=== PATIENT | male | born 1950 | race American Indian/Alaskan Native ===

== ENCOUNTER 2017-02-01 14:28 | Inpatient (IN) | payer MEDICARE ==
[2017-02-01] MEDS ORDERED: NACL 0.9% 1000 ML 1,000 ML IV ONE (14:34)
[2017-02-01 14:41] LABS: Hematocrit 43.5 % (35.5-45.6); Hemoglobin 14.9 gm/dl (11.8-15.2); Mean Corpuscular HGB Conc 34 % (32-34); Mean Corpuscular Hemoglobin 32 pg (28-32); Mean Corpuscular Volume 94 fl (84-94); Platelet Count 200 K/mm3 (140-440); Red Blood Count 4.62 M/mm3 (3.65-5.03); Red Cell Distribution Width 12.8 % (13.2-15.2); White Blood Count 10.5 K/mm3 (4.5-11.0)
[2017-02-01 14:57] LABS: INR 0.97 (0.87-1.13)
[2017-02-01 15:08] LABS: Alanine Aminotransferase 39 units/L (7-56); Albumin 4.3 g/dL (3.9-5); Albumin/Globulin Ratio 1.5 %; Alkaline Phosphatase 95 units/L (35-129); Anion Gap 18 mmol/L; BUN/Creatinine Ratio 10.76; Blood Urea Nitrogen 14 mg/dL (9-20); Calcium 9.5 mg/dL (8.4-10.2); Carbon Dioxide 28 mmol/L (22-30); Chloride 98.8 mmol/L (98-107); Glucose 93 mg/dL (75-100); Potassium 4.5 mmol/L (3.6-5.0); Sodium 140 mmol/L (137-145); Total Protein 7.1 g/dL (6.3-8.2)
--- NOTE | 2017-02-01 15:27 | XRay Report ---
PORTABLE CHEST: Syncope. An AP portable view of the chest demonstrates a normal cardiac contour considering the limits of this technique. The lungs are clear with no evidence of infiltrate, fluid or failure. IMPRESSION: Normal portable chest.
--- NOTE | 2017-02-01 15:33 | Emergency Department Report ---
ED Chest Pain HPI - General Chief Complaint: Syncope Stated Complaint: POSS CVA Time Seen by Provider: 02/01/17 15:09 Source: EMS Mode of arrival: Stretcher Limitations: No Limitations - History of Present Illness Initial Comments: This is a 66-year-old male presents to the emergency department by EMS from [facility] after he began having some chest pain and then had an episode where he passed out in the car in the parking lot. The patient woke up from passing out he was slightly altered and there was concern of possible stroke or seizure but those symptoms have resolved upon presentation. He was not given and did not take anything for his symptoms prior to presentation. He has a past medical history of Crohn's disease and hypertension. The patient says that he has left ankle pain currently and feels some generalized weakness, along with this chest pain. His primary care physician is Dr. Parsons. Severity scale (0 -10): 8 - Related Data Home Medications Medication Instructions Recorded Confirmed Last Taken Lisinopril [Zestril] 20 mg PO BID 02/01/17 02/01/17 02/01/17 Multivits,Ca,Min/Iron/FA/Lycop 1 each PO DAILY 02/01/17 02/01/17 02/01/17 [Centrum Men's Tablet] [place]-3 Fatty Acids/Fish Oil [Fish 1 each PO DAILY 02/01/17 02/01/17 02/01/17 Oil] Omeprazole 40 mg PO DAILY 02/01/17 02/01/17 02/01/17 Ondansetron [Zofran TAB] 4 mg PO Q8HR PRN 02/01/17 02/01/17 Unknown traMADol [Ultram] 50 mg PO Q4HR PRN 02/01/17 02/01/17 02/01/17 Allergies Allergy/AdvReac Type Severity Reaction Status Date / Time No Known Allergies Allergy Unverified 02/01/17 14:36 Heart Score - HEART Score History: Moderately suspicious EKG: Non-specific Age: > 65 Risk factors: 1-2 risk factors Troponin: < normal limit HEART Score: 5 - Critical Actions Critical Actions: 4-6 pts:12-16.6% risk of adverse cardiac event. Should be admitted ED Review of Systems ROS: Stated complaint: POSS CVA Other details as noted in HPI Comment: All other systems reviewed and negative Constitutional: denies: chills, fever Eyes: denies: eye pain, eye discharge, vision change ENT: denies: ear pain, throat pain Respiratory: denies: cough, shortness of breath, wheezing Cardiovascular: chest pain, syncope. denies: edema Gastrointestinal: denies: abdominal pain, nausea, diarrhea Genitourinary: denies: urgency, dysuria Musculoskeletal: denies: back pain, joint swelling, arthralgia Skin: denies: rash, lesions Neurological: headache, weakness ED Past Medical Hx - Medications Home Medications: Home Medications Medication Instructions Recorded Confirmed Last Taken Type Lisinopril [Zestril] 20 mg PO BID 02/01/17 02/01/17 02/01/17 History Multivits,Ca,Min/Iron/FA/Lycop 1 each PO DAILY 02/01/17 02/01/17 02/01/17 History [Centrum Men's Tablet] [place]-3 Fatty Acids/Fish Oil [Fish 1 each PO DAILY 02/01/17 02/01/17 02/01/17 History Oil] Omeprazole 40 mg PO DAILY 02/01/17 02/01/17 02/01/17 History Ondansetron [Zofran TAB] 4 mg PO Q8HR PRN 02/01/17 02/01/17 Unknown History traMADol [Ultram] 50 mg PO Q4HR PRN 02/01/17 02/01/17 02/01/17 History ED Physical Exam - General Limitations: No Limitations - Other Other exam information: GENERAL: The patient is well-developed well-nourished. HENT: Normocephalic. Atraumatic. Patient has moist mucous membranes. No nystagmus. EYES: Extraocular motions are intact. Pupils equal reactive to light bilaterally. NECK: Supple. Trachea is midline. CHEST/LUNGS: Clear to auscultation. There is no respiratory distress noted. Chest pain is not reproducible to palpation chest wall. HEART/CARDIOVASCULAR: Regular. There is no tachycardia. There is no gallop rub or murmur. ABDOMEN: Abdomen is soft, nontender. Patient has normal bowel sounds. There is no abdominal distention. SKIN: Skin is warm and dry. NEURO: The patient is awake, alert, and oriented. The patient is cooperative. The patient has no focal neurologic deficits. The patient has normal speech. There is a slight bilateral upper extremity drift but then the patient is able to keep his arms above the gurney and readjust back to supination. MUSCULOSKELETAL: There is no tenderness or deformity. There is no limitation range of motion. There is no evidence of acute injury. Muscle strength 5 out of 5 upper and lower extremities bilaterally. Cap refill less than 2 seconds. ED Course Vital Signs 02/01/17 02/01/17 02/01/17 14:42 16:24 18:42 Temperature 98.0 F 97.8 F Pulse Rate 60 54 L 58 L Respiratory 20 18 18 Rate Blood Pressure 155/84 142/91 170/98 [Left] O2 Sat by Pulse 100 96 100 Oximetry AALIYAH score - Aaliyah Score Age > 65: (0) No Aspirin use within the Past 7 Days: (0) No 3 or more CAD Risk Factors: (0) No 2 or more Angina events in past 24 hrs: (1) Yes Known CAD with more than 50% Stenosis: (0) No Elevated Cardiac Markers: (0) No ST Deviation Greater than 0.5mm: (0) No AALIYAH Score: 1 ED Medical Decision Making - Lab Data Result diagrams: 02/01/17 14:25 02/01/17 14:25 - EKG Data -: EKG Interpreted by Me EKG shows normal: sinus rhythm, axis, intervals (right bundle branch block), QRS complexes, ST-T waves Rate: bradycardia - EKG Data When compared to previous EKG there are: previous EKG unavailable Interpretation: other (sinus bradycardia, right bundle branch block) - Radiology Data Radiology results: report reviewed, image reviewed interpreted by me: Chest x-ray does not show any acute process. There are no pleural effusions, obvious pneumonia and there is no pneumothorax. Abdominal x-ray shows nonspecific nonobstructive bowel gas CT of the head does not show any acute intracranial process including no ischemia, shift, mass, bleeding or skull fracture. - Medical Decision Making 66-year-old male presents to the emergency department after passing out in his car, witnessed by his , [facility] and developing some chest pain. He does have some abdominal discomfort as well that is not reproducible to palpation but he does have a history of Crohn's as well. Patient was seen by my colleague upon presentation and a possible code stroke was canceled as the patient only neurological complaint and/or deficit at that time was a generalized weakness. CT of the head was done not show any acute process. Vital signs stable throughout his ED course. However secondary to the chest pain with syncope, the patient will be admitted to the hospital for further evaluation and treatment and has been accepted for admission by the hospitalist, Dr. Maher. - Differential Diagnosis CVA, TIA, AR, PE, Crohn's, orthostatic hypotension Critical Care Time: No Critical care attestation.: If time is entered above; I have spent that time in minutes in the direct care of this critically ill patient, excluding procedure time. ED Disposition Clinical Impression: Syncope Qualifiers: Syncope type: unspecified Qualified Code(s): R55 - Syncope and collapse Hypertension Qualifiers: Hypertension type: essential hypertension Qualified Code(s): I10 - Essential ( primary) hypertension Chest pain Qualifiers: Chest pain type: unspecified Qualified Code(s): R07.9 - Chest pain, unspecified Abdominal pain Qualifiers: Abdominal location: generalized Qualified Code(s): R10.84 - Generalized abdominal pain Disposition: OP ADMIT IP TO THIS HOSP Is pt being admited?: Yes Does the pt Need Aspirin: Yes Condition: Stable Instructions: Syncope (ED), Hypertension (ED), Chest Pain (ED) Time of Disposition: 19:02
[2017-02-01] MEDS ORDERED: MORPHINE IV ONE (15:56)
[2017-02-01 16:18] LABS: Basophils % (Manual) 0 % (0.0-1.8); Blastocytes % (Manual) 0 %; Eosinophils % (Manual) 0 % (0.0-4.3)
[2017-02-01 16:19] LABS: Diff Status Complete; RBC Morphology Normal
[2017-02-01] MEDS ORDERED: DILAUDID IV ONE ×2 (17:20→20:35)
--- NOTE | 2017-02-01 17:21 | Cat Scan Report ---
FINAL REPORT EXAM: CT HEAD/BRAIN WO CON HISTORY: Syncope TECHNIQUE: CT head without contrast PRIORS: None. FINDINGS: No acute intra-axial or extra-axial hemorrhage is identified. There is no evidence of midline shift or mass effect. The ventricles and sulci are within normal limits. Abraham-white matter differentiation is intact. No acute parenchymal abnormalities seen. Bony calvarium is grossly intact. Visualized portions of the mastoids and paranasal sinuses are unremarkable. IMPRESSION: Negative CT head
[2017-02-01] MEDS ORDERED: BABY ASPIRIN PO ONE (19:02)
[2017-02-01] MEDS ORDERED: HEPARIN ONE (19:52)
[2017-02-01] MEDS ORDERED: DILAUDID ONE (20:41)
[2017-02-01] MEDS ORDERED: PERCOCET 5/325 PO PRN (20:44)
[2017-02-01] MEDS ORDERED: MILK OF MAGNESIA PO PRN (20:44)
[2017-02-01] MEDS ORDERED: ZOFRAN IV PRN (20:44)
[2017-02-01] MEDS ORDERED: AMBIEN PO PRN (20:44)
[2017-02-01] MEDS ORDERED: TYLENOL PO PRN (20:44)
[2017-02-01] MEDS ORDERED: DULCOLAX PR PRN (20:44)
--- NOTE | 2017-02-01 20:44 | History and Physical Report ---
History of Present Illness Date of examination: 02/01/17 Date of admission: 02/01/2017 Chief complaint: Chief complaint: Left-sided chest pain lasting for 5 minutes while at [facility] one hour ago. History of present illness: History of Present Illness This is a 66-year-old male presents to the emergency department by EMS from [facility] after he began having some chest pain and then had an episode where he passed out in the car in the parking lot. Chest pain was only one episode. Resolved. Initial chest pain was 8/10 lasted for a few minutes. Quality is sharp. No exacerbating or relieving factors. The patient woke up from passing out and was slightly altered and there was concern of possible stroke or seizure but those symptoms have resolved upon presentation. He did not take anything for his symptoms prior to presentation. He has a past medical history of Crohn's disease and hypertension. The patient says that he has left ankle pain currently and feels some generalized weakness, along with this chest pain. His primary care physician is Dr. Parsons. Severity scale (0 -10): 8 Review of System: Constitutional: no fever, no chills, no weight loss Ears, eyes, nose, mouth and throat: no nasal congestion, no nasal discharge, no sinus pressure, no vision change, no red eye. Neck: No neck pain or rigidity. Cardiovascular: No chest pain, no orthopnea, no palpitations, no leg swelling Respiratory: No shortness of breath, no cough, no congestion, no wheezing Gastrointestinal: no abdominal pain, no nausea, no vomiting Genitourinary : no dysuria, no hematuria Musculoskeletal: no joint swelling or muscle ache Integumentary: no rash, no pruritis Neurological: no parathesias, no numbness, no tingling Endocrine: no cold or heat intolerance, no polyuria or polydipsia Hematologic/Lymphatic: no easy bruising, no easy bleeding, no gland swelling Allergic/Immunologic: no urticaria, no angioedema. Past History Past Medical History: hypertension, other (Crohn's disease) Past Surgical History: No surgical history Social history: lives with family, full code. denies: smoking, alcohol abuse Family history: hypertension Medications and Allergies Allergies Allergy/AdvReac Type Severity Reaction Status Date / Time No Known Allergies Allergy Unverified 02/01/17 14:36 Home Medications Medication Instructions Recorded Confirmed Last Taken Type Lisinopril [Zestril] 20 mg PO BID 02/01/17 02/01/17 02/01/17 History Multivits,Ca,Min/Iron/FA/Lycop 1 each PO DAILY 02/01/17 02/01/17 02/01/17 History [Centrum Men's Tablet] [place]-3 Fatty Acids/Fish Oil [Fish 1 each PO DAILY 02/01/17 02/01/17 02/01/17 History Oil] Omeprazole 40 mg PO DAILY 02/01/17 02/01/17 02/01/17 History Ondansetron [Zofran TAB] 4 mg PO Q8HR PRN 02/01/17 02/01/17 Unknown History traMADol [Ultram] 50 mg PO Q4HR PRN 02/01/17 02/01/17 02/01/17 History Active Meds: Active Medications Heparin Sodium (Porcine) (Heparin) 5,000 unit SUB-Q Q8HR JENNIFER Review of Systems All systems: negative Exam - Physical Exam Narrative exam: Lying comfortably - Constitutional Vitals: Temp Pulse Resp BP Pulse Ox 98 F 61 16 158/90 100 02/01/17 19:00 02/01/17 19:00 02/01/17 19:00 02/01/17 19:00 02/01/17 19:00 General appearance: Present: no acute distress, well-nourished - EENT Eyes: Present: PERRL ENT: hearing intact, clear oral mucosa - Neck Neck: Present: supple, normal ROM - Respiratory Respiratory effort: normal Respiratory: bilateral: CTA - Cardiovascular Heart Sounds: Present: S1 & S2. Absent: rub, click - Extremities Extremities: pulses symmetrical, No edema Peripheral Pulses: within normal limits - Abdominal General gastrointestinal: Present: soft, non-tender, non-distended, normal bowel sounds Male genitourinary: Present: normal - Integumentary Integumentary: Present: clear, warm, dry - Musculoskeletal Musculoskeletal: gait normal, strength equal bilaterally - Psychiatric Psychiatric: appropriate mood/affect, intact judgment & insight - Neurologic Neurologic: CNII-XII intact, moves all extremities Results - Labs CBC & Chem 7: 02/01/17 14:25 02/02/17 03:10 Labs: Laboratory Last Values WBC 10.5 K/mm3 (4.5-11.0) 02/01/17 14:25 RBC 4.62 M/mm3 (3.65-5.03) 02/01/17 14:25 Hgb 14.9 gm/dl (11.8-15.2) 02/01/17 14:25 Hct 43.5 % (35.5-45.6) 02/01/17 14:25 MCV 94 fl (84-94) 02/01/17 14:25 MCH 32 pg (28-32) 02/01/17 14:25 MCHC 34 % (32-34) 02/01/17 14:25 RDW 12.8 % (13.2-15.2) L 02/01/17 14:25 Plt Count 200 K/mm3 (140-440) 02/01/17 14:25 Lymph % (Auto) Retail Merchandiser Technician 02/01/17 14:25 Lymph # Retail Merchandiser Technician 02/01/17 14:25 Add Manual Diff Complete 02/01/17 14:25 Total Counted 100 02/01/17 14:25 Seg Neuts % (Manual) 35.0 % (40.0-70.0) L 02/01/17 14:25 Band Neutrophils % 2.0 % 02/01/17 14:25 Lymphocytes % (Manual) 53.0 % (13.4-35.0) H 02/01/17 14:25 Reactive Lymphs % (Man) 2.0 % 02/01/17 14:25 Monocytes % (Manual) 8.0 % (0.0-7.3) H 02/01/17 14:25 Eosinophils % (Manual) 0 % (0.0-4.3) 02/01/17 14:25 Basophils % (Manual) 0 % (0.0-1.8) 02/01/17 14:25 Metamyelocytes % 0 % 02/01/17 14:25 Myelocytes % 0 % 02/01/17 14:25 Promyelocytes % 0 % 02/01/17 14:25 Blast Cells % 0 % 02/01/17 14:25 Nucleated RBC % Not Reportable 02/01/17 14:25 Seg Neutrophils # Man 3.7 K/mm3 (1.8-7.7) 02/01/17 14:25 Band Neutrophils # 0.2 K/mm3 02/01/17 14:25 Lymphocytes # (Manual) 5.6 K/mm3 (1.2-5.4) H 02/01/17 14:25 Abs React Lymphs (Man) 0.2 K/mm3 02/01/17 14:25 Monocytes # (Manual) 0.8 K/mm3 (0.0-0.8) 02/01/17 14:25 Eosinophils # (Manual) 0.0 K/mm3 (0.0-0.4) 02/01/17 14:25 Basophils # (Manual) 0.0 K/mm3 (0.0-0.1) 02/01/17 14:25 Metamyelocytes # 0.0 K/mm3 02/01/17 14:25 Myelocytes # 0.0 K/mm3 02/01/17 14:25 Promyelocytes # 0.0 K/mm3 02/01/17 14:25 Blast Cells # 0.0 K/mm3 02/01/17 14:25 WBC Morphology Not Reportable 02/01/17 14:25 Hypersegmented Neuts Not Reportable 02/01/17 14:25 Hyposegmented Neuts Not Reportable 02/01/17 14:25 Hypogranular Neuts Not Reportable 02/01/17 14:25 Smudge Cells Not Reportable 02/01/17 14:25 Toxic Granulation Not Reportable 02/01/17 14:25 Toxic Vacuolation Not Reportable 02/01/17 14:25 Dohle Bodies Not Reportable 02/01/17 14:25 Pelger-Huet Anomaly Not Reportable 02/01/17 14:25 Juan Daniel Rods Not Reportable 02/01/17 14:25 Platelet Estimate Not Reportable 02/01/17 14:25 Clumped Platelets Not Reportable 02/01/17 14:25 Plt Clumps, EDTA Not Reportable 02/01/17 14:25 Large Platelets Not Reportable 02/01/17 14:25 Giant Platelets Not Reportable 02/01/17 14:25 Platelet Satelliting Not Reportable 02/01/17 14:25 Plt Morphology Comment Not Reportable 02/01/17 14:25 RBC Morphology Normal 02/01/17 14:25 Dimorphic RBCs Not Reportable 02/01/17 14:25 Polychromasia Not Reportable 02/01/17 14:25 Hypochromasia Not Reportable 02/01/17 14:25 Poikilocytosis Not Reportable 02/01/17 14:25 Anisocytosis Not Reportable 02/01/17 14:25 Microcytosis Not Reportable 02/01/17 14:25 Macrocytosis Not Reportable 02/01/17 14:25 Spherocytes Not Reportable 02/01/17 14:25 Pappenheimer Bodies Not Reportable 02/01/17 14:25 Sickle Cells Not Reportable 02/01/17 14:25 Target Cells Not Reportable 02/01/17 14:25 Tear Drop Cells Not Reportable 02/01/17 14:25 Ovalocytes Not Reportable 02/01/17 14:25 Helmet Cells Not Reportable 02/01/17 14:25 Guillen-Scofield Bodies Not Reportable 02/01/17 14:25 Stanley Rings Not Reportable 02/01/17 14:25 Usman Cells Not Reportable 02/01/17 14:25 Bite Cells Not Reportable 02/01/17 14:25 Crenated Cell Not Reportable 02/01/17 14:25 Elliptocytes Not Reportable 02/01/17 14:25 Acanthocytes (Spur) Not Reportable 02/01/17 14:25 Rouleaux Not Reportable 02/01/17 14:25 Hemoglobin C Crystals Not Reportable 02/01/17 14:25 Schistocytes Not Reportable 02/01/17 14:25 Malaria parasites Not Reportable 02/01/17 14:25 Wili Bodies Not Reportable 02/01/17 14:25 Hem Pathologist Commnt No 02/01/17 14:25 PT 12.8 Sec. (12.2-14.9) 02/01/17 14:25 INR 0.97 (0.87-1.13) 02/01/17 14:25 D-Dimer 174.92 ng/mlDDU (0-234) 02/01/17 15:16 Sodium 140 mmol/L (137-145) 02/01/17 14:25 Potassium 4.5 mmol/L (3.6-5.0) 02/01/17 14:25 Chloride 98.8 mmol/L (98-107) 02/01/17 14:25 Carbon Dioxide 28 mmol/L (22-30) 02/01/17 14:25 Anion Gap 18 mmol/L 02/01/17 14:25 BUN 14 mg/dL (9-20) 02/01/17 14:25 Creatinine 1.3 mg/dL (0.8-1.5) 02/01/17 14:25 Estimated GFR 55 ml/min 02/01/17 14:25 BUN/Creatinine Ratio 10.76 % 02/01/17 14:25 Glucose 93 mg/dL (75-100) 02/01/17 14:25 Calcium 9.5 mg/dL (8.4-10.2) 02/01/17 14:25 Magnesium 1.60 mg/dL (1.7-2.3) L 02/01/17 14:25 Total Bilirubin 0.90 mg/dL (0.1-1.2) 02/01/17 14:25 AST 36 units/L (5-40) 02/01/17 14:25 ALT 39 units/L (7-56) 02/01/17 14:25 Alkaline Phosphatase 95 units/L (35-129) 02/01/17 14:25 Troponin T < 0.010 ng/mL (0.00-0.029) 02/01/17 14:25 Total Protein 7.1 g/dL (6.3-8.2) 02/01/17 14:25 Albumin 4.3 g/dL (3.9-5) 02/01/17 14:25 Albumin/Globulin Ratio 1.5 % 02/01/17 14:25 TSH 1.470 mlU/mL (0.270-4.200) 02/01/17 15:16 Blood Type O POSITIVE 02/01/17 14:35 Antibody Screen Negative 02/01/17 14:35 Short CBC 02/01/17 Range/Units 14:25 WBC 10.5 (4.5-11.0) K/mm3 Hgb 14.9 (11.8-15.2) gm/dl Hct 43.5 (35.5-45.6) % Plt Count 200 (140-440) K/mm3 BMP 02/01/17 02/02/17 14:25 03:10 Sodium 140 138 Potassium 4.5 4.0 Chloride 98.8 100.5 Carbon Dioxide 28 25 BUN 14 13 Creatinine 1.3 1.0 Glucose 93 89 Calcium 9.5 8.5 Cardiac Enzymes 09/01/1002/01/17 02/01/17 Range/Units 14:25 22:34 22:34 Total Creatine Kinase 255 H (55-170) units/L CK-MB (CK-2) 2.2 (0.0-4.0) ng/mL Troponin T < 0.010 < 0.010 (0.00-0.029) ng/mL 02/02/17 02/02/17 Range/Units 03:10 03:10 Total Creatine Kinase 225 H (55-170) units/L CK-MB (CK-2) 2.1 (0.0-4.0) ng/mL Troponin T < 0.010 (0.00-0.029) ng/mL Liver Function 02/01/17 02/02/17 Range/Units 14:25 03:10 Total Bilirubin 0.90 1.60 H (0.1-1.2) mg/dL AST 36 184 H (5-40) units/L ALT 39 157 H (7-56) units/L Alkaline Phosphatase 95 97 (35-129) units/L Albumin 4.3 3.6 L (3.9-5) g/dL - Imaging and Cardiology EKG: report reviewed (normal sinus rhythm. 76/m no acute findings) Assessment and Plan Advance Directives: Yes (full code) VTE prophylaxis?: Chemical Plan of care discussed with patient/family: Yes - Patient Problems (1) Acute coronary syndrome Current Visit: Yes Status: Acute Plan to address problem: Patient to continue with serial cardiac enzymes and Lexiscan. Differential diagnosis of reflux esophagitis a strong possibility. Patient on omeprazole for a long time. Clinical symptoms not consistent with costochondritis (2) Hypertension Current Visit: Yes Status: Chronic Qualifiers: Hypertension type: essential hypertension Qualified Code(s): I10 - Essential (primary) hypertension Plan to address problem: Continue lisinopril (3) Syncope Current Visit: Yes Status: Acute Qualifiers: Syncope type: unspecified Encounter type: E Qualified Code(s): R55 - Syncope and collapse Plan to address problem: Syncope workup. Carotid duplex scan and echocardiogram. (4) Gastroesophageal reflux disease Current Visit: Yes Status: Chronic Qualifiers: Esophagitis presence: with esophagitis Qualified Code(s): K21.0 - Gastro- esophageal reflux disease with esophagitis Plan to address problem: Continue omeprazole or Protonix 40 mg daily. (5) Crohns disease Current Visit: Yes Status: Chronic Qualifiers: Gastrointestinal tract location: small intestine Digestive disease complication type: D Plan to address problem: Not on any medications at this point. (6) DVT prophylaxis Current Visit: Yes Status: Acute Plan to address problem: On Lovenox 40 mg subcutaneous daily.
[2017-02-01] MEDS: HEPARIN SUB-Q SCH (22:15)
[2017-02-01] MEDS: NACL 0.45% 1000 ML 1,000 ML IV SCH (22:17)
[2017-02-01 23:45] LABS: Creatine Kinase MB 2.2 ng/mL (0.0-4.0)
[2017-02-02 03:45] LABS: Creatine Kinase MB 2.1 ng/mL (0.0-4.0)
[2017-02-02 03:47] LABS: Alanine Aminotransferase 157 units/L (7-56); Albumin 3.6 g/dL (3.9-5); Albumin/Globulin Ratio 1.3 %; Alkaline Phosphatase 97 units/L (35-129); Anion Gap 17 mmol/L; Blood Urea Nitrogen 13 mg/dL (9-20); Calcium 8.5 mg/dL (8.4-10.2); Carbon Dioxide 25 mmol/L (22-30); Chloride 100.5 mmol/L (98-107); Glucose 89 mg/dL (75-100); Sodium 138 mmol/L (137-145); Total Protein 6.3 g/dL (6.3-8.2)
[2017-02-02] MEDS: DILAUDID IV PRN ×4 (05:48→22:55)
[2017-02-02] MEDS: HEPARIN SUB-Q SCH (05:49)
[2017-02-02] MEDS ORDERED: ZOFRAN PO PRN (06:41)
[2017-02-02] MEDS ORDERED: LEXISCAN IV ONE (08:12)
[2017-02-02 09:11] LABS: Creatine Kinase MB 1.9 ng/mL (0.0-4.0)
--- NOTE | 2017-02-02 09:27 | XRay Report ---
Abdomen 2 views: History: Abdominal pain. Findings: No free intraperitoneal air. No bowel distention or wall thickening. No radiopaque calculus or abnormal calcification. Minimal stool in colon. Impression: Essentially negative abdomen.
[2017-02-02] MEDS ORDERED: NON-FORMULARY (Omeprazole [Omeprazole] 40 MG) PO SCH (10:00)
--- NOTE | 2017-02-02 12:48 | Magnetic Resonance Report ---
MRI scan of brain: History: CVA. Technique: Multiplanar, multisequence images were obtained without contrast injection. Findings: No evidence of restricted diffusion. Ventricles are normal in size and midline in location. No evidence of acute ischemia, hemorrhage or mass. No extra-axial fluid collection. Normal brainstem and cerebellum. Focal areas of hyperintensity in the periventricular region bilaterally. No associated restricted diffusion. Partial empty sella . Impression: No acute intracranial abnormality.Small vessel ischemic changes. Partial empty sella.
--- NOTE | 2017-02-02 13:05 | Progress Note ---
Assessment and Plan Assessment and plan: This is a 66-year-old male presents to the emergency department by EMS from [facility] after he began having some chest pain and then had an episode where he passed out in the car in the parking lot. Chest pain was only one episode. Resolved. Initial chest pain was 8/10 lasted for a few minutes. Quality is sharp. No exacerbating or relieving factors. The patient woke up from passing out and was slightly altered and there was concern of possible stroke or seizure but those symptoms have resolved upon presentation. He did not take anything for his symptoms prior to presentation. He has a past medical history of Crohn's disease and hypertension. The patient says that he has left ankle pain currently and feels some generalized weakness, along with this chest pain. His primary care physician is Dr. Parsons. (1) Atypical chest pain Current Visit: Yes Status: Acute Plan to address problem: Cardiac enzymes and stress test and negative. Likely secondary to GERD. We'll continue PPI. (2) Hypertension Current Visit: Yes Status: Chronic Qualifiers: Hypertension type: essential hypertension Qualified Code(s): I10 - Essential (primary) hypertension Plan to address problem: Continue lisinopril (3) Syncope Current Visit: Yes Status: Acute Qualifiers: Syncope type: unspecified Encounter type: E Qualified Code(s): R55 - Syncope and collapse Plan to address problem: possible vasovagal syncope. Syncope workup. Carotid duplex scan and echocardiogram. We'll obtain an MRI to rule out any additional pathology. Continue monitoring blood pressure. (4) Gastroesophageal reflux disease Current Visit: Yes Status: Chronic Qualifiers: Esophagitis presence: with esophagitis Qualified Code(s): K21.0 - Gastro- esophageal reflux disease with esophagitis Plan to address problem: Continue omeprazole or Protonix 40 mg daily. (5) Crohns disease Current Visit: Yes Status: Chronic Qualifiers: Gastrointestinal tract location: small intestine Digestive disease complication type: D Plan to address problem: Not on any medications at this point. (6) transaminitis We'll repeat in a.m. likely secondary to hypotension. (7) bradycardia Continue to monitor on telemetry. No significant pulses noted. (8) DVT prophylaxis Current Visit: Yes Status: Acute Plan to address problem: On Lovenox 40 mg subcutaneous daily. plan of care discussed with the patient and son. History Interval history: Patient seen and examined in no acute distress denies chest pain at this time. Hospitalist Physical - Physical exam Narrative exam: VITAL SIGNS: Reviewed. GENERAL: The patient appeared well nourished and normally developed. Vital signs as documented. HEAD: No signs of head trauma. EYES: Pupils are equal. Extraocular motions intact. EARS: Hearing grossly intact. MOUTH: Oropharynx is normal. NECK: No adenopathy, no JVD. CHEST: Chest with clear breath sounds bilaterally. No wheezes, rales, or rhonchi. CARDIAC: Regular rate and rhythm. S1 and S2, without murmurs, gallops, or rubs. VASCULAR: No Edema. Peripheral pulses normal and equal in all extremities. ABDOMEN: Soft, without detectable tenderness. No sign of distention. No rebound or guarding, and no masses palpated. Bowel Sounds normal. MUSCULOSKELETAL: Good range of motion of all major joints. Extremities without clubbing, cyanosis or edema. NEUROLOGIC EXAM: Alert and oriented x 3. No focal sensory or strength deficits. Speech normal. Follows commands. PSYCHIATRIC: Mood normal. SKIN: No rash or lesions. - Constitutional Vitals: Temp Pulse Resp BP Pulse Ox 97.8 F 78 20 149/71 96 02/02/17 08:09 02/02/17 10:37 02/02/17 08:09 02/02/17 10:37 02/02/17 08:09 General appearance: Present: no acute distress, well-nourished Results - Labs CBC & Chem 7: 02/01/17 14:25 02/02/17 03:10 Labs: Laboratory Last Values WBC 10.5 K/mm3 (4.5-11.0) 02/01/17 14:25 RBC 4.62 M/mm3 (3.65-5.03) 02/01/17 14:25 Hgb 14.9 gm/dl (11.8-15.2) 02/01/17 14:25 Hct 43.5 % (35.5-45.6) 02/01/17 14:25 MCV 94 fl (84-94) 02/01/17 14:25 MCH 32 pg (28-32) 02/01/17 14:25 MCHC 34 % (32-34) 02/01/17 14:25 RDW 12.8 % (13.2-15.2) L 02/01/17 14:25 Plt Count 200 K/mm3 (140-440) 02/01/17 14:25 Lymph % (Auto) Packaging Sales 02/01/17 14:25 Lymph # Packaging Sales 02/01/17 14:25 Add Manual Diff Complete 02/01/17 14:25 Total Counted 100 02/01/17 14:25 Seg Neuts % (Manual) 35.0 % (40.0-70.0) L 02/01/17 14:25 Band Neutrophils % 2.0 % 02/01/17 14:25 Lymphocytes % (Manual) 53.0 % (13.4-35.0) H 02/01/17 14:25 Reactive Lymphs % (Man) 2.0 % 02/01/17 14:25 Monocytes % (Manual) 8.0 % (0.0-7.3) H 02/01/17 14:25 Eosinophils % (Manual) 0 % (0.0-4.3) 02/01/17 14:25 Basophils % (Manual) 0 % (0.0-1.8) 02/01/17 14:25 Metamyelocytes % 0 % 02/01/17 14:25 Myelocytes % 0 % 02/01/17 14:25 Promyelocytes % 0 % 02/01/17 14:25 Blast Cells % 0 % 02/01/17 14:25 Nucleated RBC % Not Reportable 02/01/17 14:25 Seg Neutrophils # Man 3.7 K/mm3 (1.8-7.7) 02/01/17 14:25 Band Neutrophils # 0.2 K/mm3 02/01/17 14:25 Lymphocytes # (Manual) 5.6 K/mm3 (1.2-5.4) H 02/01/17 14:25 Abs React Lymphs (Man) 0.2 K/mm3 02/01/17 14:25 Monocytes # (Manual) 0.8 K/mm3 (0.0-0.8) 02/01/17 14:25 Eosinophils # (Manual) 0.0 K/mm3 (0.0-0.4) 02/01/17 14:25 Basophils # (Manual) 0.0 K/mm3 (0.0-0.1) 02/01/17 14:25 Metamyelocytes # 0.0 K/mm3 02/01/17 14:25 Myelocytes # 0.0 K/mm3 02/01/17 14:25 Promyelocytes # 0.0 K/mm3 02/01/17 14:25 Blast Cells # 0.0 K/mm3 02/01/17 14:25 WBC Morphology Not Reportable 02/01/17 14:25 Hypersegmented Neuts Not Reportable 02/01/17 14:25 Hyposegmented Neuts Not Reportable 02/01/17 14:25 Hypogranular Neuts Not Reportable 02/01/17 14:25 Smudge Cells Not Reportable 02/01/17 14:25 Toxic Granulation Not Reportable 02/01/17 14:25 Toxic Vacuolation Not Reportable 02/01/17 14:25 Dohle Bodies Not Reportable 02/01/17 14:25 Pelger-Huet Anomaly Not Reportable 02/01/17 14:25 Juan Daniel Rods Not Reportable 02/01/17 14:25 Platelet Estimate Not Reportable 02/01/17 14:25 Clumped Platelets Not Reportable 02/01/17 14:25 Plt Clumps, EDTA Not Reportable 02/01/17 14:25 Large Platelets Not Reportable 02/01/17 14:25 Giant Platelets Not Reportable 02/01/17 14:25 Platelet Satelliting Not Reportable 02/01/17 14:25 Plt Morphology Comment Not Reportable 02/01/17 14:25 RBC Morphology Normal 02/01/17 14:25 Dimorphic RBCs Not Reportable 02/01/17 14:25 Polychromasia Not Reportable 02/01/17 14:25 Hypochromasia Not Reportable 02/01/17 14:25 Poikilocytosis Not Reportable 02/01/17 14:25 Anisocytosis Not Reportable 02/01/17 14:25 Microcytosis Not Reportable 02/01/17 14:25 Macrocytosis Not Reportable 02/01/17 14:25 Spherocytes Not Reportable 02/01/17 14:25 Pappenheimer Bodies Not Reportable 02/01/17 14:25 Sickle Cells Not Reportable 02/01/17 14:25 Target Cells Not Reportable 02/01/17 14:25 Tear Drop Cells Not Reportable 02/01/17 14:25 Ovalocytes Not Reportable 02/01/17 14:25 Helmet Cells Not Reportable 02/01/17 14:25 Guillen-[place] Bodies Not Reportable 02/01/17 14:25 [place] Rings Not Reportable 02/01/17 14:25 [place] Cells Not Reportable 02/01/17 14:25 Bite Cells Not Reportable 02/01/17 14:25 Crenated Cell Not Reportable 02/01/17 14:25 Elliptocytes Not Reportable 02/01/17 14:25 Acanthocytes (Spur) Not Reportable 02/01/17 14:25 Rouleaux Not Reportable 02/01/17 14:25 Hemoglobin C Crystals Not Reportable 02/01/17 14:25 Schistocytes Not Reportable 02/01/17 14:25 Malaria parasites Not Reportable 02/01/17 14:25 Wili Bodies Not Reportable 02/01/17 14:25 Hem Pathologist Commnt No 02/01/17 14:25 PT 12.8 Sec. (12.2-14.9) 02/01/17 14:25 INR 0.97 (0.87-1.13) 02/01/17 14:25 D-Dimer 174.92 ng/mlDDU (0-234) 02/01/17 15:16 Sodium 138 mmol/L (137-145) 02/02/17 03:10 Potassium 4.0 mmol/L (3.6-5.0) 02/02/17 03:10 Chloride 100.5 mmol/L (98-107) 02/02/17 03:10 Carbon Dioxide 25 mmol/L (22-30) 02/02/17 03:10 Anion Gap 17 mmol/L 02/02/17 03:10 BUN 13 mg/dL (9-20) 02/02/17 03:10 Creatinine 1.0 mg/dL (0.8-1.5) 02/02/17 03:10 Estimated GFR > 60 ml/min 02/02/17 03:10 BUN/Creatinine Ratio 13.00 % 02/02/17 03:10 Glucose 89 mg/dL (75-100) 02/02/17 03:10 Calcium 8.5 mg/dL (8.4-10.2) 02/02/17 03:10 Magnesium 1.60 mg/dL (1.7-2.3) L 02/01/17 14:25 Total Bilirubin 1.60 mg/dL (0.1-1.2) H 02/02/17 03:10 AST 184 units/L (5-40) H 02/02/17 03:10 ALT 157 units/L (7-56) H 02/02/17 03:10 Alkaline Phosphatase 97 units/L (35-129) 02/02/17 03:10 Total Creatine Kinase 206 units/L (55-170) H 02/02/17 08:22 CK-MB (CK-2) 1.9 ng/mL (0.0-4.0) 02/02/17 08:22 CK-MB (CK-2) Rel Index 0.9 (0-4) 02/02/17 08:22 Troponin T < 0.010 ng/mL (0.00-0.029) 02/02/17 08:22 Total Protein 6.3 g/dL (6.3-8.2) 02/02/17 03:10 Albumin 3.6 g/dL (3.9-5) L 02/02/17 03:10 Albumin/Globulin Ratio 1.3 % 02/02/17 03:10 TSH 1.470 mlU/mL (0.270-4.200) 02/01/17 15:16 Blood Type O POSITIVE 02/01/17 14:35 Antibody Screen Negative 02/01/17 14:35
[2017-02-02] MEDS: ZESTRIL PO SCH ×2 (13:40→22:33)
[2017-02-02] MEDS: PROTONIX PO SCH (13:41)
[2017-02-02] MEDS: ULTRAM PO PRN (19:00)
[2017-02-02] MEDS: LOVENOX SUB-Q SCH (22:33)
[2017-02-02] MEDS: NACL 0.45% 1000 ML 1,000 ML IV SCH (22:35)
--- NOTE | 2017-02-03 00:34 | Treadmill Report ---
PROCEDURE: Nuclear cardiology perfusion study. REASON FOR STUDY: Syncope. IMAGING PROTOCOL: The patient received 10 mCi of Technetium 99m Tetrofosmin for resting image and 28 mCi of Technetium 99m Tetrofosmin for stress imaging. The imaging for the whole procedure was completed 30-90 minutes following the initial injection of Technetium 99m tetrofosmin. The SPECT imaging in the 180 degree arc was performed in the right anterior oblique projection. Computerized reconstruction of the images was performed for analysis. IMAGING RESULTS: Normal cavity size from stress to rest. Normal distribution of radionuclide in the anterior, inferior, septal, and apical regions. Gated SPECT, EF of 61% with no wall motion abnormality. The patient infused Lexiscan with no EKG changes. SUMMARY: 1. Negative Lexiscan EKG. 2. Normal rest and stress myocardial perfusion scan. No significant stress ischemia. No wall motion abnormality. Gated SPECT, EF 61%. JOB# [id number] DESIREE/NUSRAT
[2017-02-03] MEDS: DILAUDID IV PRN ×4 (04:30→22:31)
[2017-02-03 06:21] LABS: Alanine Aminotransferase 114 units/L (7-56); Albumin 3.7 g/dL (3.9-5); Albumin/Globulin Ratio 1.3 %; Alkaline Phosphatase 94 units/L (35-129); BUN/Creatinine Ratio 12.72; Blood Urea Nitrogen 14 mg/dL (9-20); Calcium 8.7 mg/dL (8.4-10.2); Carbon Dioxide 25 mmol/L (22-30); Glucose 107 mg/dL (75-100); Total Protein 6.5 g/dL (6.3-8.2)
[2017-02-03 06:22] LABS: Anion Gap 17 mmol/L; Chloride 99.8 mmol/L (98-107); Potassium 4.2 mmol/L (3.6-5.0); Sodium 138 mmol/L (137-145)
--- NOTE | 2017-02-03 09:06 | Discharge Summary ---
Providers - Providers Date of Admission: 02/01/17 19:02 Attending physician: PING SURAEZ MD 02/02/17 09:47 Consult to Dietitian/Nutrition [CONS] Routine Physician Instructions: Reason For Exam: Reason for Consult: JACKLYN SCORE OF16 Primary care physician: [employer]ER Hospitalization Reason for admission: chest pain Condition: Stable Hospital course: This is a 66-year-old male presents to the emergency department by EMS from [facility] after he began having some chest pain and then had an episode where he passed out in the car in the parking lot. Chest pain was only one episode. Resolved. Initial chest pain was 8/10 lasted for a few minutes. Quality is sharp. No exacerbating or relieving factors. The patient woke up from passing out and was slightly altered and there was concern of possible stroke or seizure but those symptoms have resolved upon presentation. He did not take anything for his symptoms prior to presentation. He has a past medical history of Crohn's disease and hypertension. The patient says that he has left ankle pain currently and feels some generalized weakness, along with this chest pain. His primary care physician is Dr. Parsons. patient proceeded to have a stress test which was negative. He continued to have epigastric pain with nausea and GI was consulted. Elevated LFT trended down, the patient continued to have nausea and poor by mouth discoloration despite negative stress test. The patient proceeded to have endoscopy evaluation. Which revealed on small bowel follow series duodenal spasm. The patient was started on Dicyclomine recommendation for endoscopy which he wanted to have done with his [place] physician Dr. Gerard . Patient is stable at this time for discharge as tolerated diet. Patient was started on PPI. Assessment and Plan Atypical chest pain secondary to GERD GERD Duodenal spasm Hypertension Intractable nausea Crohn's disease Transaminitis Bradycardia Syncope Disposition: [id number]/TX-06 HOME UNDER HOME [facility] Time spent for discharge: 35 mins Core Measure Documentation - Palliative Care Palliative Care/ Comfort Measures: Not Applicable - Core Measures Any of the following diagnoses?: none - VTE Discharge Requirements Deep Vein Thrombosis/Pulmonary Embolism Present on Admission: No Exam - Physical Exam Narrative exam: VITAL SIGNS: Reviewed. GENERAL: The patient appeared well nourished and normally developed. Vital signs as documented. HEAD: No signs of head trauma. EYES: Pupils are equal. Extraocular motions intact. EARS: Hearing grossly intact. MOUTH: Oropharynx is normal. NECK: No adenopathy, no JVD. CHEST: Chest with clear breath sounds bilaterally. No wheezes, rales, or rhonchi. CARDIAC: Regular rate and rhythm. S1 and S2, without murmurs, gallops, or rubs. VASCULAR: No Edema. Peripheral pulses normal and equal in all extremities. ABDOMEN: Soft, epigastric tenderness. No sign of distention. No rebound or guarding, and no masses palpated. Bowel Sounds normal. MUSCULOSKELETAL: Good range of motion of all major joints. Extremities without clubbing, cyanosis or edema. NEUROLOGIC EXAM: Alert and oriented x 3. No focal sensory or strength deficits. Speech normal. Follows commands. PSYCHIATRIC: Mood normal. SKIN: No rash or lesions. - Constitutional Vitals: Temp Pulse Resp BP Pulse Ox 98.1 F 51 L 17 147/62 96 02/02/17 23:34 02/02/17 23:34 02/03/17 04:30 02/02/17 23:34 02/02/17 23:34 Plan Activity: advance as tolerated, fall precautions Diet: low fat Special Instructions: record daily weights, record daily BP diary ( ) Additional Instructions: Recommend outpatient cardiology eval to be arranged by PCP. This is due to Bradycardia. follow with GI doctors at [place] Follow up with: PRIMARY CARE, [Primary Care Provider] - 3-5 Days (DR. Parsons) Prescriptions: Dicyclomine [Bentyl] 20 mg PO QID #30 tablet Ondansetron [Zofran Odt] 4 mg PO Q8HR #30 tab.rapdis traMADol [Ultram 50 MG tab] 50 mg PO Q4HR PRN #20 tablet PRN Reason: Pain
[2017-02-03] MEDS: PROTONIX PO SCH (12:33)
[2017-02-03] MEDS: ZESTRIL PO SCH ×2 (12:43→22:30)
--- NOTE | 2017-02-03 13:49 | Progress Note ---
Assessment and Plan Assessment and plan: This is a 66-year-old male presents to the emergency department by EMS from [facility] after he began having some chest pain and then had an episode where he passed out in the car in the parking lot. Chest pain was only one episode. Resolved. Initial chest pain was 8/10 lasted for a few minutes. Quality is sharp. No exacerbating or relieving factors. The patient woke up from passing out and was slightly altered and there was concern of possible stroke or seizure but those symptoms have resolved upon presentation. He did not take anything for his symptoms prior to presentation. He has a past medical history of Crohn's disease and hypertension. The patient says that he has left ankle pain currently and feels some generalized weakness, along with this chest pain. His primary care physician is Dr. Parsons. (1) Atypical chest pain Current Visit: Yes Status: Acute Plan to address problem: Cardiac enzymes and stress test and negative. Likely secondary to GERD. We'll continue PPI. (2) Hypertension Current Visit: Yes Status: Chronic Qualifiers: Hypertension type: essential hypertension Qualified Code(s): I10 - Essential (primary) hypertension Plan to address problem: Continue lisinopril (3) Syncope Current Visit: Yes Status: Acute Qualifiers: Syncope type: unspecified Encounter type: E Qualified Code(s): R55 - Syncope and collapse Plan to address problem: possible vasovagal syncope. Syncope workup. Carotid duplex scan and echocardiogram. MRI is negative for acute pathology. Continue monitoring blood pressure. PT OT evaluation and treat (4) Gastroesophageal reflux disease Current Visit: Yes Status: Chronic Qualifiers: Esophagitis presence: with esophagitis Qualified Code(s): K21.0 - Gastro- esophageal reflux disease with esophagitis Plan to address problem: Continue omeprazole or Protonix 40 mg daily. Now with complaint of abdominal pain although with history of Crohn's disease in the setting of elevated liver function tests will obtain ultrasound of the abdomen. Check liver function tests to be able to trend. And also obtain a lipase level. A GI consultation (5) Crohns disease Current Visit: Yes Status: Chronic Qualifiers: Gastrointestinal tract location: small intestine Digestive disease complication type: D Plan to address problem: Not on any medications at this point. (6) transaminitis We'll repeat in a.m. likely secondary to hypotension. (7) bradycardia Continue to monitor on telemetry. No significant pulses noted. (8) DVT prophylaxis Current Visit: Yes Status: Acute Plan to address problem: On Lovenox 40 mg subcutaneous daily. plan of care discussed with the patient History Interval history: Patient seen and examined in no acute distress but reports nausea with abdominal pain. He reports he is unable to tolerate his by mouth males. He reports that this pain started yesterday. Hospitalist Physical - Physical exam Narrative exam: VITAL SIGNS: Reviewed. GENERAL: The patient appeared well nourished and normally developed. Vital signs as documented. HEAD: No signs of head trauma. EYES: Pupils are equal. Extraocular motions intact. EARS: Hearing grossly intact. MOUTH: Oropharynx is normal. NECK: No adenopathy, no JVD. CHEST: Chest with clear breath sounds bilaterally. No wheezes, rales, or rhonchi. CARDIAC: Regular rate and rhythm. S1 and S2, without murmurs, gallops, or rubs. VASCULAR: No Edema. Peripheral pulses normal and equal in all extremities. ABDOMEN: Soft, epigastric tenderness. No sign of distention. No rebound or guarding, and no masses palpated. Bowel Sounds normal. MUSCULOSKELETAL: Good range of motion of all major joints. Extremities without clubbing, cyanosis or edema. NEUROLOGIC EXAM: Alert and oriented x 3. No focal sensory or strength deficits. Speech normal. Follows commands. PSYCHIATRIC: Mood normal. SKIN: No rash or lesions. - Constitutional Vitals: Temp Pulse Resp BP Pulse Ox 98.1 F 59 L 17 136/61 97 02/02/17 23:34 02/03/17 12:43 02/03/17 04:30 02/03/17 12:43 02/03/17 10:00 General appearance: Present: no acute distress, well-nourished Results - Labs CBC & Chem 7: 02/01/17 14:25 02/03/17 05:43 Labs: Laboratory Last Values WBC 10.5 K/mm3 (4.5-11.0) 02/01/17 14:25 RBC 4.62 M/mm3 (3.65-5.03) 02/01/17 14:25 Hgb 14.9 gm/dl (11.8-15.2) 02/01/17 14:25 Hct 43.5 % (35.5-45.6) 02/01/17 14:25 MCV 94 fl (84-94) 02/01/17 14:25 MCH 32 pg (28-32) 02/01/17 14:25 MCHC 34 % (32-34) 02/01/17 14:25 RDW 12.8 % (13.2-15.2) L 02/01/17 14:25 Plt Count 200 K/mm3 (140-440) 02/01/17 14:25 Lymph % (Auto) Filtration Plant Mechanic 02/01/17 14:25 Lymph # Filtration Plant Mechanic 02/01/17 14:25 Add Manual Diff Complete 02/01/17 14:25 Total Counted 100 02/01/17 14:25 Seg Neuts % (Manual) 35.0 % (40.0-70.0) L 02/01/17 14:25 Band Neutrophils % 2.0 % 02/01/17 14:25 Lymphocytes % (Manual) 53.0 % (13.4-35.0) H 02/01/17 14:25 Reactive Lymphs % (Man) 2.0 % 02/01/17 14:25 Monocytes % (Manual) 8.0 % (0.0-7.3) H 02/01/17 14:25 Eosinophils % (Manual) 0 % (0.0-4.3) 02/01/17 14:25 Basophils % (Manual) 0 % (0.0-1.8) 02/01/17 14:25 Metamyelocytes % 0 % 02/01/17 14:25 Myelocytes % 0 % 02/01/17 14:25 Promyelocytes % 0 % 02/01/17 14:25 Blast Cells % 0 % 02/01/17 14:25 Nucleated RBC % Not Reportable 02/01/17 14:25 Seg Neutrophils # Man 3.7 K/mm3 (1.8-7.7) 02/01/17 14:25 Band Neutrophils # 0.2 K/mm3 02/01/17 14:25 Lymphocytes # (Manual) 5.6 K/mm3 (1.2-5.4) H 02/01/17 14:25 Abs React Lymphs (Man) 0.2 K/mm3 02/01/17 14:25 Monocytes # (Manual) 0.8 K/mm3 (0.0-0.8) 02/01/17 14:25 Eosinophils # (Manual) 0.0 K/mm3 (0.0-0.4) 02/01/17 14:25 Basophils # (Manual) 0.0 K/mm3 (0.0-0.1) 02/01/17 14:25 Metamyelocytes # 0.0 K/mm3 02/01/17 14:25 Myelocytes # 0.0 K/mm3 02/01/17 14:25 Promyelocytes # 0.0 K/mm3 02/01/17 14:25 Blast Cells # 0.0 K/mm3 02/01/17 14:25 WBC Morphology Not Reportable 02/01/17 14:25 Hypersegmented Neuts Not Reportable 02/01/17 14:25 Hyposegmented Neuts Not Reportable 02/01/17 14:25 Hypogranular Neuts Not Reportable 02/01/17 14:25 Smudge Cells Not Reportable 02/01/17 14:25 Toxic Granulation Not Reportable 02/01/17 14:25 Toxic Vacuolation Not Reportable 02/01/17 14:25 Dohle Bodies Not Reportable 02/01/17 14:25 Pelger-Huet Anomaly Not Reportable 02/01/17 14:25 Juan Daniel Rods Not Reportable 02/01/17 14:25 Platelet Estimate Not Reportable 02/01/17 14:25 Clumped Platelets Not Reportable 02/01/17 14:25 Plt Clumps, EDTA Not Reportable 02/01/17 14:25 Large Platelets Not Reportable 02/01/17 14:25 Giant Platelets Not Reportable 02/01/17 14:25 Platelet Satelliting Not Reportable 02/01/17 14:25 Plt Morphology Comment Not Reportable 02/01/17 14:25 RBC Morphology Normal 02/01/17 14:25 Dimorphic RBCs Not Reportable 02/01/17 14:25 Polychromasia Not Reportable 02/01/17 14:25 Hypochromasia Not Reportable 02/01/17 14:25 Poikilocytosis Not Reportable 02/01/17 14:25 Anisocytosis Not Reportable 02/01/17 14:25 Microcytosis Not Reportable 02/01/17 14:25 Macrocytosis Not Reportable 02/01/17 14:25 Spherocytes Not Reportable 02/01/17 14:25 Pappenheimer Bodies Not Reportable 02/01/17 14:25 Sickle Cells Not Reportable 02/01/17 14:25 Target Cells Not Reportable 02/01/17 14:25 Tear Drop Cells Not Reportable 02/01/17 14:25 Ovalocytes Not Reportable 02/01/17 14:25 Helmet Cells Not Reportable 02/01/17 14:25 Guill[place] Bodies Not Reportable 02/01/17 14:25 [place] Rings Not Reportable 02/01/17 14:25 [place] Cells Not Reportable 02/01/17 14:25 Bite Cells Not Reportable 02/01/17 14:25 Crenated Cell Not Reportable 02/01/17 14:25 Elliptocytes Not Reportable 02/01/17 14:25 Acanthocytes (Spur) Not Reportable 02/01/17 14:25 Rouleaux Not Reportable 02/01/17 14:25 Hemoglobin C Crystals Not Reportable 02/01/17 14:25 Schistocytes Not Reportable 02/01/17 14:25 Malaria parasites Not Reportable 02/01/17 14:25 Wili Bodies Not Reportable 02/01/17 14:25 Hem Pathologist Commnt No 02/01/17 14:25 PT 12.8 Sec. (12.2-14.9) 02/01/17 14:25 INR 0.97 (0.87-1.13) 02/01/17 14:25 D-Dimer 174.92 ng/mlDDU (0-234) 02/01/17 15:16 Sodium 138 mmol/L (137-145) 02/03/17 05:43 Potassium 4.2 mmol/L (3.6-5.0) 02/03/17 05:43 Chloride 99.8 mmol/L (98-107) 02/03/17 05:43 Carbon Dioxide 25 mmol/L (22-30) 02/03/17 05:43 Anion Gap 17 mmol/L 02/03/17 05:43 BUN 14 mg/dL (9-20) 02/03/17 05:43 Creatinine 1.1 mg/dL (0.8-1.5) 02/03/17 05:43 Estimated GFR > 60 ml/min 02/03/17 05:43 BUN/Creatinine Ratio 12.72 % 02/03/17 05:43 Glucose 107 mg/dL (75-100) H 02/03/17 05:43 Calcium 8.7 mg/dL (8.4-10.2) 02/03/17 05:43 Magnesium 1.60 mg/dL (1.7-2.3) L 02/01/17 14:25 Total Bilirubin 1.30 mg/dL (0.1-1.2) H 02/03/17 05:43 AST 77 units/L (5-40) H 02/03/17 05:43 ALT 114 units/L (7-56) H 02/03/17 05:43 Alkaline Phosphatase 94 units/L (35-129) 02/03/17 05:43 Total Creatine Kinase 206 units/L (55-170) H 02/02/17 08:22 CK-MB (CK-2) 1.9 ng/mL (0.0-4.0) 02/02/17 08:22 CK-MB (CK-2) Rel Index 0.9 (0-4) 02/02/17 08:22 Troponin T < 0.010 ng/mL (0.00-0.029) 02/02/17 08:22 Total Protein 6.5 g/dL (6.3-8.2) 02/03/17 05:43 Albumin 3.7 g/dL (3.9-5) L 02/03/17 05:43 Albumin/Globulin Ratio 1.3 % 02/03/17 05:43 TSH 1.470 mlU/mL (0.270-4.200) 02/01/17 15:16 Blood Type O POSITIVE 02/01/17 14:35 Antibody Screen Negative 02/01/17 14:35
[2017-02-03] MEDS: LOVENOX SUB-Q SCH (22:29)
[2017-02-03] MEDS: NACL 0.45% 1000 ML 1,000 ML IV SCH (23:20)
[2017-02-04] MEDS: DILAUDID IV PRN ×3 (01:50→21:44)
[2017-02-04 07:02] LABS: Alanine Aminotransferase 94 units/L (7-56); Albumin 3.5 g/dL (3.9-5); Albumin/Globulin Ratio 1.2 %; Alkaline Phosphatase 93 units/L (35-129); Anion Gap 18 mmol/L; BUN/Creatinine Ratio 12.72; Blood Urea Nitrogen 14 mg/dL (9-20); Calcium 8.9 mg/dL (8.4-10.2); Carbon Dioxide 21 mmol/L (22-30); Chloride 101.2 mmol/L (98-107); Glucose 107 mg/dL (75-100); Potassium 4.4 mmol/L (3.6-5.0); Sodium 136 mmol/L (137-145); Total Protein 6.5 g/dL (6.3-8.2)
--- NOTE | 2017-02-04 09:37 | Ultrasound Report ---
ULTRASOUND ABDOMEN COMPLETE: Technique: Transabdominal ultrasound with color Doppler interrogation. History: abdominal pain, cholecystitis. Findings: The liver parenchyma is echogenic consistent with diffuse fatty infiltration. No focal liver lesion or surface nodularity is identified. The gallbladder has been surgically removed. The CBD measures 8 mm. The visualized portions of the pancreas including the head and proximal body are within normal limits. The kidneys demonstrate no hydronephrosis or mass. Cortical thickness and echogenicity are within normal limits bilaterally. The spleen and aorta are within normal limits. No aneurysmal dilatation is noted. No ascites. IMPRESSION: The gallbladder is not identified. Patient reports history of cholecystectomy. The CBD measures 8 mm. No convincing choledocholithiasis. Fatty infiltration of the liver.
[2017-02-04] MEDS: ZESTRIL PO SCH ×2 (10:14→21:38)
[2017-02-04] MEDS: PROTONIX PO SCH (10:15)
--- NOTE | 2017-02-04 11:05 | Gastroenterology Consultation ---
History of Present Illness - Reason for Consult Consult date: 02/04/17 intractable N/V Requesting physician: PING SUAREZ - History of Present Illness Patient is a 66 y/o male who presented to the ER with CP and a syncopal episode. Cardiac enzymes, stress test, and brain MRI negative. PMH significant for Crohn's disease and HTN. GI was consulted for intractable N/V. This morning pt was resting in bed with family at bedside. No acute distress noted. CP has now resolved. Admits to nausea w/o vomiting today. Tolerated eating a small amount of breakfast this am. Reports a hx of multiple bowel resections due to Crohn's disease with chronic abd pain and N/V. States nausea has progressively worsened over the last couple of days. He is on Humira and sees Dr. Gerard at [facility]. Reports last EGD was at the beginning of this year that revealed inflammation but no obstruction or ulcer. On daily PPI. No NSAIDS. No hx of liver disease or ETOH abuse. Denies fever, wt loss, dysphagia, odynophagia, hematemesis, melena, diarrhea, constipation, or hematochezia. Last BM was 2 days ago. Abd exam was benign with no distention, rigidity, or guarding. Bowel sounds present. Mid abdominal scar noted from past surgeries. Past History Past Medical History: hypertension, other (Crohn's disease) Past Surgical History: cholecystectomy, bowel surgery (resections x 3) Social history: lives with family, full code. denies: smoking, alcohol abuse Family history: hypertension Medications and Allergies Allergies Allergy/AdvReac Type Severity Reaction Status Date / Time No Known Allergies Allergy Unverified 02/01/17 14:36 Home Medications Medication Instructions Recorded Confirmed Last Taken Type Lisinopril [Zestril TAB] 20 mg PO BID 02/01/17 02/01/17 02/01/17 History Multivits,Ca,Min/Iron/FA/Lycop 1 each PO DAILY 02/01/17 02/01/17 02/01/17 History [Centrum Men's Tablet] [place]-3 Fatty Acids/Fish Oil [Fish 1 each PO DAILY 02/01/17 02/01/17 02/01/17 History Oil] Omeprazole 40 mg PO DAILY 02/01/17 02/01/17 02/01/17 History traMADol [Ultram 50 MG tab] 50 mg PO Q4HR PRN 02/01/17 02/01/17 02/01/17 History Ondansetron [Zofran TAB] 4 mg PO Q8HR PRN #14 tablet 02/03/17 Unknown Rx Active Meds: Active Medications Bisacodyl (Dulcolax) 10 mg UT QDAY PRN PRN Reason: Constipation unrelieved by MOM Enoxaparin Sodium (Lovenox) 40 mg SUB-Q QDAY@2200 [facility] Last Admin: 02/03/17 22:29 Dose: 40 mg Hydromorphone HCl (Dilaudid) 0.5 mg IV Q3H PRN PRN Reason: Pain , Severe (7-10) Last Admin: 02/04/17 10:15 Dose: 0.5 mg Sodium Chloride (Nacl 0.45% 1000 Ml) 1,000 mls @ 42 mls/hr IV DIRECT [facility] Last Admin: 02/03/17 23:20 Dose: 42 mls/hr Lisinopril (Zestril) 20 mg PO BID [facility] Last Admin: 02/04/17 10:14 Dose: 20 mg Magnesium Hydroxide (Milk Of Magnesia) 30 ml PO Q4H PRN PRN Reason: Constipation Last Admin: 02/02/17 01:39 Dose: 30 ml Ondansetron HCl (Zofran) 4 mg PO Q8HR PRN PRN Reason: Nausea Pantoprazole Sodium (Protonix) 40 mg PO DAILY [facility] Last Admin: 02/04/17 10:15 Dose: 40 mg Tramadol HCl (Ultram) 50 mg PO Q4HR PRN PRN Reason: Pain Last Admin: 02/02/17 19:00 Dose: 50 mg Zolpidem Tartrate (Ambien) 5 mg PO QHS PRN PRN Reason: Insomnia Review of Systems - Review of Systems All systems: negative Cardiovascular: chest pain (resolved), syncope Gastrointestinal: abdominal pain, nausea, vomiting Exam - Constitutional Vital Signs: Temp Pulse Resp BP Pulse Ox 98.2 F 49 L 19 177/73 97 02/04/17 07:56 02/04/17 07:56 02/04/17 07:56 02/04/17 07:56 02/04/17 07:56 General appearance: no acute distress, well-nourished - EENT Eyes: PERRL, EOM intact ENT: hearing intact - Neck Neck: supple, normal ROM - Respiratory Respiratory: bilateral: CTA - Cardiovascular Rhythm: regular Heart Sounds: Present: S1 & S2 Extremities: No edema - Gastrointestinal General gastrointestinal: Present: soft, tender (generalized), non-distended, normal bowel sounds, other (mid abd scar) - Integumentary Integumentary: Present: warm, dry - Neurologic Neurological: alert and oriented x3 - Psychiatric Psychiatric: appropriate mood/affect, cooperative - Labs CBC & Chem 7: 02/01/17 14:25 02/04/17 06:22 Lab Results: Laboratory Results - last 24 hr 02/03/17 02/04/17 05:43 06:22 Sodium 136 L Potassium 4.4 Chloride 101.2 Carbon Dioxide 21 L Anion Gap 18 BUN 14 Creatinine 1.1 Estimated GFR > 60 BUN/Creatinine Ratio 12.72 Glucose 107 H Calcium 8.9 Total Bilirubin 1.00 AST 58 H ALT 94 H Alkaline Phosphatase 93 Total Protein 6.5 Albumin 3.5 L Albumin/Globulin Ratio 1.2 Lipase 14 Assessment and Plan 1.N/V 2.Crohn's disease 3.transaminitis 4.CP 5.syncope -cardiac enzymes and stress test negative -brain MRI-negative -LFTs normal on admission- now trending down- etiology most likely due to shock/ hypotension- no hx of liver disease -abd [id number] -abd u/s-revealed infiltration of fatty liver -pt with a h/o Crohn's disease on Humira -with multiple resections and chronic abd pain with N/V -last EGD at [facility] by Dr. Gerard was at the beginning of this year-revealed inflammation but no obstruction or ulcer per pt -Will order upper GI series with SBFT -NPO after MN -depending on results and if symptoms persist will consider EGD -continue PPI and supportive care -will follow
[2017-02-04] MEDS: LOVENOX SUB-Q SCH (21:38)
--- NOTE | 2017-02-04 21:53 | Progress Note ---
Assessment and Plan Assessment and plan: This is a 66-year-old male presents to the emergency department by EMS from [facility] after he began having some chest pain and then had an episode where he passed out in the car in the parking lot. Chest pain was only one episode. Resolved. Initial chest pain was 8/10 lasted for a few minutes. Quality is sharp. No exacerbating or relieving factors. The patient woke up from passing out and was slightly altered and there was concern of possible stroke or seizure but those symptoms have resolved upon presentation. He did not take anything for his symptoms prior to presentation. He has a past medical history of Crohn's disease and hypertension. The patient says that he has left ankle pain currently and feels some generalized weakness, along with this chest pain. His primary care physician is Dr. Parsons. Atypical chest pain * Negative stress test. Likely secondary to GERD HTN * Continue lisinopril Near Syncope * likely vasovagal. MRI negative, PT/OT Gastroesophageal reflux disease * HX of Crohns with multiple surgeries. Possible contributing to severe reflux. * GI consulted, plan for SBFT and Possible Endoscopy due to continue pain * Discharge if testing is negative Crohns disease * GI following, may benefit from initiation of meds Transaminities * Likely hypotensive in nature. * improving Bradycardia * stable. May benefit from outpatient event monitor. (8) DVT prophylaxis Current Visit: Yes Status: Acute Plan to address problem: On Lovenox 40 mg subcutaneous daily. plan of care discussed with the patient PT is recommending home with home health but daughter wants patient placed History Interval history: Patient seen and examined in no acute distress, still with nausea with abdominal pain. He reports he is unable to tolerate his by mouth males. He reports that this pain started yesterday. Hospitalist Physical - Physical exam Narrative exam: VITAL SIGNS: Reviewed. GENERAL: The patient appeared well nourished and normally developed. Vital signs as documented. HEAD: No signs of head trauma. EYES: Pupils are equal. Extraocular motions intact. EARS: Hearing grossly intact. MOUTH: Oropharynx is normal. NECK: No adenopathy, no JVD. CHEST: Chest with clear breath sounds bilaterally. No wheezes, rales, or rhonchi. CARDIAC: Regular rate and rhythm. S1 and S2, without murmurs, gallops, or rubs. VASCULAR: No Edema. Peripheral pulses normal and equal in all extremities. ABDOMEN: Soft, epigastric tenderness. No sign of distention. No rebound or guarding, and no masses palpated. Bowel Sounds normal. MUSCULOSKELETAL: Good range of motion of all major joints. Extremities without clubbing, cyanosis or edema. NEUROLOGIC EXAM: Alert and oriented x 3. No focal sensory or strength deficits. Speech normal. Follows commands. PSYCHIATRIC: Mood normal. SKIN: No rash or lesions. - Constitutional Vitals: Temp Pulse Resp BP Pulse Ox 98.2 F 49 L 19 177/73 97 02/04/17 07:56 02/04/17 07:56 02/04/17 07:56 02/04/17 07:56 02/04/17 07:56 General appearance: Present: no acute distress, well-nourished Results - Labs CBC & Chem 7: 02/01/17 14:25 02/04/17 06:22 Labs: Laboratory Last Values WBC 10.5 K/mm3 (4.5-11.0) 02/01/17 14:25 RBC 4.62 M/mm3 (3.65-5.03) 02/01/17 14:25 Hgb 14.9 gm/dl (11.8-15.2) 02/01/17 14:25 Hct 43.5 % (35.5-45.6) 02/01/17 14:25 MCV 94 fl (84-94) 02/01/17 14:25 MCH 32 pg (28-32) 02/01/17 14:25 MCHC 34 % (32-34) 02/01/17 14:25 RDW 12.8 % (13.2-15.2) L 02/01/17 14:25 Plt Count 200 K/mm3 (140-440) 02/01/17 14:25 Lymph % (Auto) Product Marketing Coordinator 02/01/17 14:25 Lymph # Product Marketing Coordinator 02/01/17 14:25 Add Manual Diff Complete 02/01/17 14:25 Total Counted 100 02/01/17 14:25 Seg Neuts % (Manual) 35.0 % (40.0-70.0) L 02/01/17 14:25 Band Neutrophils % 2.0 % 02/01/17 14:25 Lymphocytes % (Manual) 53.0 % (13.4-35.0) H 02/01/17 14:25 Reactive Lymphs % (Man) 2.0 % 02/01/17 14:25 Monocytes % (Manual) 8.0 % (0.0-7.3) H 02/01/17 14:25 Eosinophils % (Manual) 0 % (0.0-4.3) 02/01/17 14:25 Basophils % (Manual) 0 % (0.0-1.8) 02/01/17 14:25 Metamyelocytes % 0 % 02/01/17 14:25 Myelocytes % 0 % 02/01/17 14:25 Promyelocytes % 0 % 02/01/17 14:25 Blast Cells % 0 % 02/01/17 14:25 Nucleated RBC % Not Reportable 02/01/17 14:25 Seg Neutrophils # Man 3.7 K/mm3 (1.8-7.7) 02/01/17 14:25 Band Neutrophils # 0.2 K/mm3 02/01/17 14:25 Lymphocytes # (Manual) 5.6 K/mm3 (1.2-5.4) H 02/01/17 14:25 Abs React Lymphs (Man) 0.2 K/mm3 02/01/17 14:25 Monocytes # (Manual) 0.8 K/mm3 (0.0-0.8) 02/01/17 14:25 Eosinophils # (Manual) 0.0 K/mm3 (0.0-0.4) 02/01/17 14:25 Basophils # (Manual) 0.0 K/mm3 (0.0-0.1) 02/01/17 14:25 Metamyelocytes # 0.0 K/mm3 02/01/17 14:25 Myelocytes # 0.0 K/mm3 02/01/17 14:25 Promyelocytes # 0.0 K/mm3 02/01/17 14:25 Blast Cells # 0.0 K/mm3 02/01/17 14:25 WBC Morphology Not Reportable 02/01/17 14:25 Hypersegmented Neuts Not Reportable 02/01/17 14:25 Hyposegmented Neuts Not Reportable 02/01/17 14:25 Hypogranular Neuts Not Reportable 02/01/17 14:25 Smudge Cells Not Reportable 02/01/17 14:25 Toxic Granulation Not Reportable 02/01/17 14:25 Toxic Vacuolation Not Reportable 02/01/17 14:25 Dohle Bodies Not Reportable 02/01/17 14:25 Pelger-Huet Anomaly Not Reportable 02/01/17 14:25 Juan Daniel Rods Not Reportable 02/01/17 14:25 Platelet Estimate Not Reportable 02/01/17 14:25 Clumped Platelets Not Reportable 02/01/17 14:25 Plt Clumps, EDTA Not Reportable 02/01/17 14:25 Large Platelets Not Reportable 02/01/17 14:25 Giant Platelets Not Reportable 02/01/17 14:25 Platelet Satelliting Not Reportable 02/01/17 14:25 Plt Morphology Comment Not Reportable 02/01/17 14:25 RBC Morphology Normal 02/01/17 14:25 Dimorphic RBCs Not Reportable 02/01/17 14:25 Polychromasia Not Reportable 02/01/17 14:25 Hypochromasia Not Reportable 02/01/17 14:25 Poikilocytosis Not Reportable 02/01/17 14:25 Anisocytosis Not Reportable 02/01/17 14:25 Microcytosis Not Reportable 02/01/17 14:25 Macrocytosis Not Reportable 02/01/17 14:25 Spherocytes Not Reportable 02/01/17 14:25 Pappenheimer Bodies Not Reportable 02/01/17 14:25 Sickle Cells Not Reportable 02/01/17 14:25 Target Cells Not Reportable 02/01/17 14:25 Tear Drop Cells Not Reportable 02/01/17 14:25 Ovalocytes Not Reportable 02/01/17 14:25 Helmet Cells Not Reportable 02/01/17 14:25 [place] Bodies Not Reportable 02/01/17 14:25 [place] Rings Not Reportable 02/01/17 14:25 [place] Cells Not Reportable 02/01/17 14:25 Bite Cells Not Reportable 02/01/17 14:25 Crenated Cell Not Reportable 02/01/17 14:25 Elliptocytes Not Reportable 02/01/17 14:25 Acanthocytes (Spur) Not Reportable 02/01/17 14:25 Rouleaux Not Reportable 02/01/17 14:25 Hemoglobin C Crystals Not Reportable 02/01/17 14:25 Schistocytes Not Reportable 02/01/17 14:25 Malaria parasites Not Reportable 02/01/17 14:25 Wili Bodies Not Reportable 02/01/17 14:25 Hem Pathologist Commnt No 02/01/17 14:25 PT 12.8 Sec. (12.2-14.9) 02/01/17 14:25 INR 0.97 (0.87-1.13) 02/01/17 14:25 D-Dimer 174.92 ng/mlDDU (0-234) 02/01/17 15:16 Sodium 136 mmol/L (137-145) L 02/04/17 06:22 Potassium 4.4 mmol/L (3.6-5.0) 02/04/17 06:22 Chloride 101.2 mmol/L (98-107) 02/04/17 06:22 Carbon Dioxide 21 mmol/L (22-30) L 02/04/17 06:22 Anion Gap 18 mmol/L 02/04/17 06:22 BUN 14 mg/dL (9-20) 02/04/17 06:22 Creatinine 1.1 mg/dL (0.8-1.5) 02/04/17 06:22 Estimated GFR > 60 ml/min 02/04/17 06:22 BUN/Creatinine Ratio 12.72 % 02/04/17 06:22 Glucose 107 mg/dL (75-100) H 02/04/17 06:22 Calcium 8.9 mg/dL (8.4-10.2) 02/04/17 06:22 Magnesium 1.60 mg/dL (1.7-2.3) L 02/01/17 14:25 Total Bilirubin 1.00 mg/dL (0.1-1.2) 02/04/17 06:22 AST 58 units/L (5-40) H 02/04/17 06:22 ALT 94 units/L (7-56) H 02/04/17 06:22 Alkaline Phosphatase 93 units/L (35-129) 02/04/17 06:22 Total Creatine Kinase 206 units/L (55-170) H 02/02/17 08:22 CK-MB (CK-2) 1.9 ng/mL (0.0-4.0) 02/02/17 08:22 CK-MB (CK-2) Rel Index 0.9 (0-4) 02/02/17 08:22 Troponin T < 0.010 ng/mL (0.00-0.029) 02/02/17 08:22 Total Protein 6.5 g/dL (6.3-8.2) 02/04/17 06:22 Albumin 3.5 g/dL (3.9-5) L 02/04/17 06:22 Albumin/Globulin Ratio 1.2 % 02/04/17 06:22 Lipase 14 units/L (13-60) 02/03/17 05:43 TSH 1.470 mlU/mL (0.270-4.200) 02/01/17 15:16 Blood Type O POSITIVE 02/01/17 14:35 Antibody Screen Negative 02/01/17 14:35
[2017-02-05] MEDS: DILAUDID IV PRN ×4 (02:28→21:25)
[2017-02-05] MEDS: ULTRAM PO PRN (09:10)
[2017-02-05] MEDS: PROTONIX PO SCH (09:10)
--- NOTE | 2017-02-05 09:15 | Gastroenterology Progress Note ---
Assessment and Plan 1.N/V 2.Crohn's disease 3.transaminitis 4.CP 5.syncope -LFTs- trending down- etiology most likely due to shock/hypotension- no hx of liver disease -pt with a h/o Crohn's disease on Humira -with multiple resections and chronic abd pain with N/V -last EGD at [place] by Dr. Gerard was at the beginning of this year-revealed inflammation but no obstruction or ulcer per pt -upper GI series with SBFT-results pending -will consider EGD based on results and progress -continue PPI and supportive care -will follow Subjective Date of service: 02/05/17 Principal diagnosis: N/V Interval history: Patient walking from restroom to bed this am. No acute distress noted. Still c/ o nausea and mild mid abd pain but no vomiting. Objective - Constitutional Vitals: Temp Pulse Resp BP Pulse Ox 97.8 F 48 L 3 L 143/72 96 02/05/17 07:36 02/05/17 07:36 02/05/17 09:10 02/05/17 07:36 02/05/17 07:36 General appearance: no acute distress, well-nourished - EENT Eyes: PERRL, EOM intact ENT: hearing intact - Neck Neck: supple, normal ROM - Respiratory Respiratory: bilateral: CTA - Cardiovascular Rhythm: regular Heart Sounds: Present: S1 & S2 - Extremities Extremities: No edema - Gastrointestinal General gastrointestinal: Present: soft, tender (generalized), non-distended, normal bowel sounds - Integumentary Integumentary: Present: warm, dry - Neurologic Neurological: alert and oriented x3 - Labs CBC & Chem 7: 02/01/17 14:25 02/04/17 06:22
[2017-02-05] MEDS: ZESTRIL PO SCH ×2 (09:29→21:24)
--- NOTE | 2017-02-05 10:12 | Progress Note ---
Assessment and Plan Assessment and plan: This is a 66-year-old male presents to the emergency department by EMS from [facility] after he began having some chest pain and then had an episode where he passed out in the car in the parking lot. Chest pain was only one episode. Resolved. Initial chest pain was 8/10 lasted for a few minutes. Quality is sharp. No exacerbating or relieving factors. The patient woke up from passing out and was slightly altered and there was concern of possible stroke or seizure but those symptoms have resolved upon presentation. He did not take anything for his symptoms prior to presentation. He has a past medical history of Crohn's disease and hypertension. The patient says that he has left ankle pain currently and feels some generalized weakness, along with this chest pain. His primary care physician is Dr. Parsons. Atypical chest pain * Negative stress test. Likely secondary to GERD HTN * Continue lisinopril Near Syncope * likely vasovagal. MRI negative, PT/OT Gastroesophageal reflux disease * HX of Crohns with multiple surgeries. Possible contributing to severe reflux. * GI consulted, plan for SBFT and Possible Endoscopy due to continue pain * Discharge if testing is negative Crohns disease * GI following, may benefit from initiation of meds Transaminities * Likely hypotensive in nature. * improving Bradycardia * stable. May benefit from outpatient event monitor. (8) DVT prophylaxis Current Visit: Yes Status: Acute Plan to address problem: On Lovenox 40 mg subcutaneous daily. plan of care discussed with the patient PT is recommending home with home health but daughter wants patient placed History Interval history: Patient seen and examined in no acute distress, still with nausea with abdominal pain. He reports that this pain started yesterday. Hospitalist Physical - Physical exam Narrative exam: VITAL SIGNS: Reviewed. GENERAL: The patient appeared well nourished and normally developed. Vital signs as documented. HEAD: No signs of head trauma. EYES: Pupils are equal. Extraocular motions intact. EARS: Hearing grossly intact. MOUTH: Oropharynx is normal. NECK: No adenopathy, no JVD. CHEST: Chest with clear breath sounds bilaterally. No wheezes, rales, or rhonchi. CARDIAC: Regular rate and rhythm. S1 and S2, without murmurs, gallops, or rubs. VASCULAR: No Edema. Peripheral pulses normal and equal in all extremities. ABDOMEN: Soft, epigastric tenderness. No sign of distention. No rebound or guarding, and no masses palpated. Bowel Sounds normal. MUSCULOSKELETAL: Good range of motion of all major joints. Extremities without clubbing, cyanosis or edema. NEUROLOGIC EXAM: Alert and oriented x 3. No focal sensory or strength deficits. Speech normal. Follows commands. PSYCHIATRIC: Mood normal. SKIN: No rash or lesions. - Constitutional Vitals: Temp Pulse Resp BP Pulse Ox 97.8 F 48 L 3 L 143/72 96 02/05/17 07:36 02/05/17 07:36 02/05/17 09:10 02/05/17 07:36 02/05/17 07:36 General appearance: Present: no acute distress, well-nourished Results - Labs CBC & Chem 7: 02/01/17 14:25 02/04/17 06:22 Labs: Laboratory Last Values WBC 10.5 K/mm3 (4.5-11.0) 02/01/17 14:25 RBC 4.62 M/mm3 (3.65-5.03) 02/01/17 14:25 Hgb 14.9 gm/dl (11.8-15.2) 02/01/17 14:25 Hct 43.5 % (35.5-45.6) 02/01/17 14:25 MCV 94 fl (84-94) 02/01/17 14:25 MCH 32 pg (28-32) 02/01/17 14:25 MCHC 34 % (32-34) 02/01/17 14:25 RDW 12.8 % (13.2-15.2) L 02/01/17 14:25 Plt Count 200 K/mm3 (140-440) 02/01/17 14:25 Lymph % (Auto) Crook Operator 02/01/17 14:25 Lymph # Crook Operator 02/01/17 14:25 Add Manual Diff Complete 02/01/17 14:25 Total Counted 100 02/01/17 14:25 Seg Neuts % (Manual) 35.0 % (40.0-70.0) L 02/01/17 14:25 Band Neutrophils % 2.0 % 02/01/17 14:25 Lymphocytes % (Manual) 53.0 % (13.4-35.0) H 02/01/17 14:25 Reactive Lymphs % (Man) 2.0 % 02/01/17 14:25 Monocytes % (Manual) 8.0 % (0.0-7.3) H 02/01/17 14:25 Eosinophils % (Manual) 0 % (0.0-4.3) 02/01/17 14:25 Basophils % (Manual) 0 % (0.0-1.8) 02/01/17 14:25 Metamyelocytes % 0 % 02/01/17 14:25 Myelocytes % 0 % 02/01/17 14:25 Promyelocytes % 0 % 02/01/17 14:25 Blast Cells % 0 % 02/01/17 14:25 Nucleated RBC % Not Reportable 02/01/17 14:25 Seg Neutrophils # Man 3.7 K/mm3 (1.8-7.7) 02/01/17 14:25 Band Neutrophils # 0.2 K/mm3 02/01/17 14:25 Lymphocytes # (Manual) 5.6 K/mm3 (1.2-5.4) H 02/01/17 14:25 Abs React Lymphs (Man) 0.2 K/mm3 02/01/17 14:25 Monocytes # (Manual) 0.8 K/mm3 (0.0-0.8) 02/01/17 14:25 Eosinophils # (Manual) 0.0 K/mm3 (0.0-0.4) 02/01/17 14:25 Basophils # (Manual) 0.0 K/mm3 (0.0-0.1) 02/01/17 14:25 Metamyelocytes # 0.0 K/mm3 02/01/17 14:25 Myelocytes # 0.0 K/mm3 02/01/17 14:25 Promyelocytes # 0.0 K/mm3 02/01/17 14:25 Blast Cells # 0.0 K/mm3 02/01/17 14:25 WBC Morphology Not Reportable 02/01/17 14:25 Hypersegmented Neuts Not Reportable 02/01/17 14:25 Hyposegmented Neuts Not Reportable 02/01/17 14:25 Hypogranular Neuts Not Reportable 02/01/17 14:25 Smudge Cells Not Reportable 02/01/17 14:25 Toxic Granulation Not Reportable 02/01/17 14:25 Toxic Vacuolation Not Reportable 02/01/17 14:25 Dohle Bodies Not Reportable 02/01/17 14:25 Pelger-Huet Anomaly Not Reportable 02/01/17 14:25 Juan Daniel Rods Not Reportable 02/01/17 14:25 Platelet Estimate Not Reportable 02/01/17 14:25 Clumped Platelets Not Reportable 02/01/17 14:25 Plt Clumps, EDTA Not Reportable 02/01/17 14:25 Large Platelets Not Reportable 02/01/17 14:25 Giant Platelets Not Reportable 02/01/17 14:25 Platelet Satelliting Not Reportable 02/01/17 14:25 Plt Morphology Comment Not Reportable 02/01/17 14:25 RBC Morphology Normal 02/01/17 14:25 Dimorphic RBCs Not Reportable 02/01/17 14:25 Polychromasia Not Reportable 02/01/17 14:25 Hypochromasia Not Reportable 02/01/17 14:25 Poikilocytosis Not Reportable 02/01/17 14:25 Anisocytosis Not Reportable 02/01/17 14:25 Microcytosis Not Reportable 02/01/17 14:25 Macrocytosis Not Reportable 02/01/17 14:25 Spherocytes Not Reportable 02/01/17 14:25 Pappenheimer Bodies Not Reportable 02/01/17 14:25 Sickle Cells Not Reportable 02/01/17 14:25 Target Cells Not Reportable 02/01/17 14:25 Tear Drop Cells Not Reportable 02/01/17 14:25 Ovalocytes Not Reportable 02/01/17 14:25 Helmet Cells Not Reportable 02/01/17 14:25 Guill[place] Bodies Not Reportable 02/01/17 14:25 [place] Rings Not Reportable 02/01/17 14:25 [place] Cells Not Reportable 02/01/17 14:25 Bite Cells Not Reportable 02/01/17 14:25 Crenated Cell Not Reportable 02/01/17 14:25 Elliptocytes Not Reportable 02/01/17 14:25 Acanthocytes (Spur) Not Reportable 02/01/17 14:25 Rouleaux Not Reportable 02/01/17 14:25 Hemoglobin C Crystals Not Reportable 02/01/17 14:25 Schistocytes Not Reportable 02/01/17 14:25 Malaria parasites Not Reportable 02/01/17 14:25 Wili Bodies Not Reportable 02/01/17 14:25 Hem Pathologist Commnt No 02/01/17 14:25 PT 12.8 Sec. (12.2-14.9) 02/01/17 14:25 INR 0.97 (0.87-1.13) 02/01/17 14:25 D-Dimer 174.92 ng/mlDDU (0-234) 02/01/17 15:16 Sodium 136 mmol/L (137-145) L 02/04/17 06:22 Potassium 4.4 mmol/L (3.6-5.0) 02/04/17 06:22 Chloride 101.2 mmol/L (98-107) 02/04/17 06:22 Carbon Dioxide 21 mmol/L (22-30) L 02/04/17 06:22 Anion Gap 18 mmol/L 02/04/17 06:22 BUN 14 mg/dL (9-20) 02/04/17 06:22 Creatinine 1.1 mg/dL (0.8-1.5) 02/04/17 06:22 Estimated GFR > 60 ml/min 02/04/17 06:22 BUN/Creatinine Ratio 12.72 % 02/04/17 06:22 Glucose 107 mg/dL (75-100) H 02/04/17 06:22 Calcium 8.9 mg/dL (8.4-10.2) 02/04/17 06:22 Magnesium 1.60 mg/dL (1.7-2.3) L 02/01/17 14:25 Total Bilirubin 1.00 mg/dL (0.1-1.2) 02/04/17 06:22 AST 58 units/L (5-40) H 02/04/17 06:22 ALT 94 units/L (7-56) H 02/04/17 06:22 Alkaline Phosphatase 93 units/L (35-129) 02/04/17 06:22 Total Creatine Kinase 206 units/L (55-170) H 02/02/17 08:22 CK-MB (CK-2) 1.9 ng/mL (0.0-4.0) 02/02/17 08:22 CK-MB (CK-2) Rel Index 0.9 (0-4) 02/02/17 08:22 Troponin T < 0.010 ng/mL (0.00-0.029) 02/02/17 08:22 Total Protein 6.5 g/dL (6.3-8.2) 02/04/17 06:22 Albumin 3.5 g/dL (3.9-5) L 02/04/17 06:22 Albumin/Globulin Ratio 1.2 % 02/04/17 06:22 Lipase 14 units/L (13-60) 02/03/17 05:43 TSH 1.470 mlU/mL (0.270-4.200) 02/01/17 15:16 Blood Type O POSITIVE 02/01/17 14:35 Antibody Screen Negative 02/01/17 14:35
--- NOTE | 2017-02-05 13:27 | Fluoroscopy Report ---
Air-contrast upper GI with small bowel follow-through: History: Nausea and vomiting. Findings: Transit of barium through the esophagus appears normal. No hiatal hernia or reflux. Evidence of gastritis. Duodenal spasm causing delayed emptying of the stomach. No definite ulcer identified. No intrinsic mass in the stomach and duodenum. Transit of barium from gastroduodenum to ileocecal region was within 45 minutes. No extrinsic or intrinsic filling defects are noted in the visualized portion of jejunum and ileum. The terminal ileum is not visualized, in spite of multiple attempts, due to overlapping from cecum and small bowel. Impression: Duodenal spasm causing delayed emptying the stomach. Jejunum appears normal. Terminal ileum not visualized. No definite evidence of stricture or obstruction is identified in the visualized portion of small bowel.
[2017-02-05] MEDS: BENTYL PO SCH ×4 (14:00→21:25)
[2017-02-05] MEDS: LOVENOX SUB-Q SCH (21:25)
[2017-02-06] MEDS: DILAUDID IV PRN ×2 (01:40→08:52)
[2017-02-06] MEDS ORDERED: WATER FOR IRRIG STERILE IR ONE ×2 (07:55→11:46)
[2017-02-06 09:43] VITALS: BP 128/78
[2017-02-06] MEDS: ZESTRIL PO SCH (09:43)
[2017-02-06] MEDS: PROTONIX PO SCH (09:43)
[2017-02-06] MEDS: BENTYL PO SCH (09:43)
[2017-02-06] MEDS ORDERED: NACL 0.9% 1000 ML 1,000 ML ONE (11:45)
[2017-02-06] MEDS ORDERED: WATER FOR IRRIG STERILE ONE (11:47)
--- NOTE | 2017-02-06 14:21 | Gastroenterology Progress Note ---
Assessment and Plan GI: stable overnight - ok to d/c w/ follow up primary GI - will sign off, call if needed Subjective Date of service: 02/06/17 Principal diagnosis: N/V Interval history: -no complaints overnight Objective - Constitutional Vitals: Temp Pulse Resp BP Pulse Ox 97.9 F 49 L 20 128/78 97 02/06/17 07:28 02/06/17 09:00 02/06/17 10:00 02/06/17 09:43 02/06/17 07:28 General appearance: no acute distress - Respiratory Respiratory: bilateral: CTA - Cardiovascular Rhythm: regular Heart Sounds: Present: S1 & S2 - Gastrointestinal General gastrointestinal: Present: soft, non-tender, non-distended - Labs CBC & Chem 7: 02/01/17 14:25 02/04/17 06:22
== END 2017-02-06 11:30 | disposition home health service (06) | DRG 392 ==
LOC: ED 14:28 → 4A 19:02 → 3A 02-02 15:50
PROVIDERS: ADMIT Internal Medicine; ATTEND Internal Medicine
DX: K21.9 Gastro-esophageal reflux disease without esophagitis (principal); K50.90 Crohn's disease, unspecified, without complications; I24.9 Acute ischemic heart disease, unspecified; I10 Essential (primary) hypertension; K59.8 Other specified functional intestinal disorders; Z82.49 Family history of ischemic heart disease and other diseases of the circulatory system
CPT/HCPCS: 36415; 70450; 70551; 71010; 74020; 74249; 76700; 78452; 80053; 82550; 82553; 83690; 83735; 84443; 84484; 85007; 85025; 85379; 85610; 86850; 86900; 86901; 93005; 93010; 93017; 93306; 93880; 96361; 96374; 96375; 96376; A9502; G8978-GP; G8979-GP; J1170; J1644; J1650; J2270; J2785; J7030; Q0162